=== PATIENT | female | born 1995 | race Caucasian/White ===

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

== ENCOUNTER 2017-01-13 20:01 | Emergency (ER) | payer MEDICAID ==
[~2017-01-13] VITALS: Ht 172.7 cm; Wt 159.0 kg
[~2017-01-13 20:01] MED LIST changes: +ONDAN4ODT PO
[2017-01-13] MEDS ORDERED: NAPR500T3 PO ×2 (20:18→20:53)
[2017-01-13] MEDS ORDERED: CODE-54 PO (20:18)
--- NOTE | 2017-01-13 20:44 | Diagnostic Imaging Report ---
INDICATION: Status post fall with left ankle pain. EXAM: AP, oblique and lateral views of the left ankle are obtained. FINDINGS: No fracture or acute bony abnormality is seen. IMPRESSION: Negative left ankle. Dictated by: Dictated on workstation # [id number]
[2017-01-13] MEDS ORDERED: KETOROLAC 60 MG/2 ML (TORADOL) VIAL IM ONE (20:50)
[2017-01-13 21:02] VITALS: BP 141/82
== END 2017-01-13 21:05 | disposition home or self-care (01) ==
LOC: ED 20:04
DX: S93.402A Sprain of unspecified ligament of left ankle, initial encounter (principal); W18.2XXA Fall in (into) shower or empty bathtub, initial encounter; Y93.E1 Activity, personal bathing and showering
CPT/HCPCS: 73610; 96372; 99283; J1885